=== PATIENT | female | born 1965 | race Caucasian/White ===

== ENCOUNTER → 2017-07-29 10:30 | Outpatient (CLI) | payer OTHER, SELFPAY ==
--- NOTE | 2017-07-29 10:37 | STE_ITS ---
Reason For Study: VENTRICULAR ARRHYTHMIAS Stress Results Protocol: Stress Echocardiogram Maximum Predicted HR: 169 bpm Target HR: 144 bpm% Maximum Pr edicted HR: 96 % Heart Stage Duration Rate BPCom ment (mm:ss) (bpm) BASELINE 68 110/ 78RARE TO OCCAS ISOLATED PVCS, RARE VENTRICULAR BIGEMINY DIRK PROTOCOL- OCCAS ISOLATED PVCS, OCCAS VENTRICULAR BIGEMINY, OCCAS STAGE 1 3:00 12 5 140/80VENTRICULAR COUPLETS. DIRK PROTOCOL- STAGE 2 3:00 15 1 144/84CONTINUED VENTRICULAR BIGEMINY, COUPLETS DIRK PROTOCOL- STAGE 3 0:31 16 2 / CAROLINE TRICULAR ARRHYTHMIAS CONTINUE, SOB RECOVERY 88 112/ 80PVCS DECREASED AT REST Stress Duration: 6:31 mm:ss Maximum Stress HR: 162 bpm Baseline Echocardiogram Findings The estimated ejection fraction is 65 %. Stress Echo Wall motion Data Resting WMIntermediate WMStress WM Resting Wall Motion Wall Motion Stress No regional wall motion No regional wall motion abnormalities noted. abnormalities noted. EKG Data Normal intervals are noted. The patient exercised according to the regular Dirk protocol for a total duration of 6:31. The maximum heart rate attained was 162 beats per minute. This was 95% of maximum predicted heart rate. The patient exercised into stage 3 of the Dirk protocol. During stress, there were no ST or T wave changes noted to suggest ischemia. No clinical angina was noted. Patient Safety TECHNICALLY DIFFICULT DUE TO FREQUENT PVCS. Interpretation Summary The estimated ejection fraction is 65 %. Normal, adequate, treadmill echocardiogram. Negative for ischemia by EKG and echocardiographic criteria. No anginal symptoms noted. Patient had frequent episodes of ventricular bigeminy during exercise and into recovery. Average exercise capacity for age. Appropriate blood pressure response to exercise. Test terminated due to dyspnea. Final LVEF of 75%. No complications. Ordering Physician: Jacob Menendez Referring Physician: Jaocb Menendez Performed By: Lizbet Concepcion, RDCS, RVT
== END ==
PROVIDERS: Family Provider Family Medicine; PCP Family Medicine; Visit Provider Internal Medicine Cardiovascular Disease
DX: I49.9 Cardiac arrhythmia, unspecified (principal)
CPT/HCPCS: 93017; 93350